=== PATIENT | male | born 1965 | race African-American/Black ===

== ENCOUNTER 2016-05-30 04:37 | Emergency (ER) | payer SELFPAY ==
[2016-05-30] MEDS ORDERED: methylPREDNISolone Sod Succ/PF 125 MG/2 ML VIAL ONE (05:04)
[2016-05-30] MEDS ORDERED: Dexamethasone 10 MG/ML VIAL ONE (05:58)
[2016-05-30] MEDS ORDERED: cloNIDine HCl 0.1 MG TAB ONE (06:01)
[2016-05-30 06:03] LABS: #Basophils 0.1 thou/uL (0.0-0.2); #Eosinphils 0.2 thou/uL (0.0-0.7); #Lymphocytes 1.4 thou/uL (1.20-3.40); #Monocytes 0.8 thou/uL (0.11-0.59); #Neutrophils 4.6 thou/uL (1.40-6.50); %Basophils 1.2 % (0.0-1.0); %Eosinophils 2.3 % (0.0-10.0); %Lymphocytes 19.1 % (21.0-51.0); %Monocytes 11.6 % (0.0-10.0); %Neutrophils 65.8 % (42.0-75.0); Hemoglobin 13.3 g/dL (14.0-18.0); Mean Corpuscular HGB CONC 33.2 g/dL (32.0-36.0); Mean Corpuscular Hemoglobin 30.5 pg (27.0-31.0); Mean Corpuscular Volume 91.8 fl (80.0-94.0); Mean Platelet Volume 10.1 fL (7.4-10.4); Platelet Count 155 thou/uL (130-400); RBC Distribution Width 13.6 % (11.5-14.5); Red Blood Cell (RBC) Count 4.37 mill/uL (4.70-6.10)
[2016-05-30] MEDS ORDERED: AMOXicillin 250 MG CAP ONE (06:03)
[2016-05-30 06:08] LABS: ALT (SGPT) 32 U/L (0-55); AST (SGOT) 44 U/L (5-34); Albumin 3.6 g/dL (3.5-5.0); Alkaline Phosphatase 86 U/L (40-150); Anion Gap 17 mmol/L (10-20); BUN (Urea Nitrogen) 19 mg/dL (8.9-20.6); Bilirubin, Total 0.6 mg/dL (0.2-1.2); Calc. Creatinine Clearance 0 mL/min (70-130); Calcium 9.6 mg/dL (7.8-10.44); Carbon Dioxide 28 mmol/L (22-29); Chloride 102 mmol/L (98-107); Estimated GFR-MDRD 54; Globulin 3.1 g/dL (2.4-3.5); Glucose 206 mg/dL (70-105); Magnesium 2.2 mg/dL (1.6-2.6); Protein, Total 6.7 g/dL (6.0-8.3); Sodium 143 mmol/L (136-145)
[2016-05-30 06:14] LABS: Troponin I 0.097 ng/mL (< 0.028)
--- NOTE | 2016-05-30 06:48 | ERRECORD ---
[facility] EMERGENCY RECORD HPI ASTHMA (05:01 BGOE) CHIEF COMPLAINT: Patient presents for evaluation of shortness of breath. HISTORIAN: History provided by patient, patient reports asthma issues over past week. long h/o asthma, htn, dm2 but out of all meds--has not taken for 2 years and has not seen pcp in 3 years. does not have rescue inhaler. worsened this am so called ems. initial neb gave him some relief. denies any associated complaints. LOCATION: Symptoms are generalized. QUALITY: Symptoms described as tightness, Symptoms described as wheezing. SEVERITY: Maximum severity of symptoms moderate, Currently symptoms are mild. TIME COURSE: Gradual onset of symptoms. ASTHMA ADMITS: Onset occurred as a child, There were no admits within the last year, There were no admits in the last five years, Patient has not been admitted to the intensive care unit. PRECIPITATING FACTORS: Precipitating factors include: unknown factors. ASSOCIATED WITH: No associated chills, No associated fever, No associated increased inhaler use, No associated upper respiratory infection, No associated vomiting. EXACERBATED BY: Patient's condition exacerbated by nothing. RELIEVED BY: Patient's condition relieved by nothing because patient has not tried anything for relief. ROS (05:05 BGOE) CONSTITUTIONAL: Negative constitutional review of systems. EYES: Negative eye review of systems. RESPIRATORY: Historian reports shortness of breath. NOTES: All systems reviewed, negative except as described above. PAST MEDICAL HISTORY MEDICAL HISTORY: Past medical history includes history of diabetes, no meds for 2 years, Past medical history includes history of hypertension, no meds for 2 yrs, Past medical history includes pulmonary disease, asthma, no meds for 2 yrs. (04:49 MHEB) PSYCHIATRIC HISTORY: No previous psychiatric history. (04:49 MHEB) SOCIAL HISTORY: Patient denies alcohol use, Patient denies drug use, Patient has no smoking history. (04:49 MHEB) NOTES: Nursing records reviewed, Agree with nursing records, Medication list reviewed. (05:07 BGOE) KNOWN ALLERGIES nkda CURRENT MEDICATIONS No recorded medications VITAL SIGNS (04:41 MHEB) &a-1R&a+25V*p+0X*[id number]*c202B*c15G*c2P*p-0X&a-25V&a+1R Name: Logan Garcia : 1965 M50 MedRec: [id number] AcctNum: [id number] Prepared: Fiona May 30, 2016 07:13 by Interface Page 1 of 3 pMD [facility] EMERGENCY RECORD VITAL SIGNS: BP: 175//115, Pulse: 92, Resp: 22, Temp: 97.7 (Tympanic), Pain: 5, O2 sat: 92 on Room Air, Time: 05/30/2016 04:41. PHYSICAL EXAM (05:06 BGOE) CONSTITUTIONAL: Patient afebrile, Pulse normal, Blood pressure, hypertensive, Respiratory rate, increased, Abnormal Pulse Oximetry, Patient appears non toxic, Patient appears pain free, Patient alert and oriented to person, place and time, obese. HEAD: Head exam included findings of head atraumatic, normocephalic. EYES: Eye exam included findings of eyelids normal to inspection, Pupils equally round and reactive to light, Extraocular muscles intact. ENT: ENT exam normal. NECK: Neck exam included findings of normal range of motion, Trachea midline. RESPIRATORY CHEST: Respiratory exam included findings of no respiratory distress, Wheezing present, scattered. CARDIOVASCULAR: Cardiovascular exam included findings of heart rate regular rate and rhythm, Heart sounds normal. ABDOMEN MALE: Abdominal exam included findings of abdomen nontender, Bowel sounds normal. BACK: Back exam normal. UPPER EXTREMITY: Upper extremity exam included findings of inspection normal, Range of motion normal. LOWER EXTREMITY: Left lower leg exam normal, Right lower leg exam normal. NEURO: Neuro exam findings include patient oriented to person, place and time, Speech normal, Gait normal. SKIN: Skin exam included findings of skin warm, dry, and normal in color. LYMPHATIC: Lymphatic exam included findings of cervical nodes normal. PSYCHIATRIC: Psychiatric exam normal. MEDICATION ADMINISTRATION SUMMARY Drug Name: aspirin oral, Dose Ordered: 325 mg, Route: Oral, Status: Given, Time: 06:39 05/30/2016, Drug Name: Decadron injection, Dose Ordered: 10 mg, Route: IV Push, Status: Given, Time: 06:10 05/30/2016, Drug Name: amoxicillin, Dose Ordered: 500 mg, Route: Oral, Status: Given, Time: 06:10 05/30/2016, Drug Name: Catapres, Dose Ordered: 0.2 mg, Route: Oral, Status: Given, Time: 06:09 05/30/2016, Drug Name: DuoNeb, Dose Ordered: 3 mL, Route: Nebulize, Status: Given, Time: 06:09 05/30/2016, Drug Name: Solu-MEDROL (PF) intravenous, Dose Ordered: 125 mg, Route: &a-1R&a+25V*p+0X*[id number]*c202B*c15G*c2P*p-0X&a-25V&a+1R Name: Logan Garcia : 1965 M50 MedRec: [id number] AcctNum: [id number] Prepared: Fiona May 30, 2016 07:13 by Interface Page 2 of 3 pMD [facility] EMERGENCY RECORD IV Piggy Back, Status: Given, Time: 05:14 05/30/2016, Drug Name: DuoNeb, Dose Ordered: 3 mL, Route: Nebulize, Status: Given, Time: 05:13 05/30/2016, Detailed record available in Medication Service section. DOCTOR NOTES RE-EVALUATION: The patient's condition has improved, patient sats now 100% on room air. completing 3rd neb treatment. feeling better. labs pending. case and care transferred to Dr. Harvey. (05:53 BGOE) Routine re-evaluation, after administration of bronchodilator nebulizer treatments, The patient's condition has improved, patient improved after neb in ed. decreased wheezing. (second overall including neb from ems). BP improved to 148/104.Sats improved with 2 L oxygen. (05:09 BGOE) TEXT: troponin up to nearly 0.1. pt now says he had some anterior chest pain last night but it was worse this morning. no prior chest pains. htn, dm2, both w/o treat. both parents had heart problems and mom had an "early heart attack." no pain now. (06:28 LLDO) SIGN OUT: Patient signed out to, Dr. Harvey. (05:53 BGOE) PATIENT PLAN: The patient requires a transfer and will be transferred. (06:28 LLDO) PROBLEM LIST No recorded problems DIAGNOSIS FINAL: PRIMARY: UNSTABLE ANGINA, ADDITIONAL: Hypertension, obesity, Type 2 Diabetes mellitus (NIDDM) - uncontrolled. (06:39 LLDO) PRIMARY: UNSTABLE ANGINA, ADDITIONAL: Asthma, Hypertension, obesity, Type 2 Diabetes mellitus (NIDDM) - uncontrolled. (06:48 LLDO) PRESCRIPTION No recorded prescriptions DISPOSITION PATIENT: Disposition Type: Discharge, Disposition: *Discharge Home. (06:39 LLDO) Disposition Type: Transfer, Disposition: Transfer to [facility]. (06:41 LLDO) Patient left the department. (07:07 AWAT) Thompson: AWAT=MIKHAIL Jin, Josh BGOE=MD Beltran, Davis LLDO=MD Candice, Tahir MHEB=MIKHAIL Toure, Lesia &a-1R&a+25V*p+0X*[id number]*c202B*c15G*c2P*p-0X&a-25V&a+1R Name: Logan Garcia : 1965 M50 MedRec: [id number] AcctNum: [id number] Prepared: Fiona May 30, 2016 07:13 by Interface Page 3 of 3 pMD MTDD
--- NOTE | 2016-05-30 06:51 | PICIS ---
[facility] EMERGENCY RECORD COMMUNICATIONS (06:34 AWAT) COMMUNICATIONS: Notes: DR PERDOMO AT [facility] ER ACCEPTS PT FOR TRANSFER AT THIS TIME. TRIAGE (04:44 MHEB) TRIAGE NOTES: sob. (04:44 MHEB) PATIENT: NAME: Logan Garcia, AGE: 50, GENDER: male, : Sat 1965, TIME OF GREET: Sun May 30, 2016 04:37, PREFERRED LANGUAGE: Moldovan, ECODE BILLING MAP: [facility] ER, SSN: [id number], Zip Code: [address], KG WEIGHT: 131.54, , , PERSON ID: [id number], PCP: none. (04:44 MHEB) PHONE: cell. (05:57) COMPLAINT: DIFFICULTY BREATHING. (04:44 MHEB) ADMISSION: URGENCY: 3 Urgent, ADMISSION SOURCE: Home, TRANSPORT: [facility], BED: TRIAGE. (04:44 MHEB) ASSESSMENT: Assessment: pt called 911 d/t difficulty breathing. (04:49 MHEB) IMMUNIZATIONS: Flu vaccine not up to date, Tetanus not up to date. (04:49 MHEB) SIRS SCORING: Heart Rate 55-109 (0), Temp range 96.8-101.1 (0), respiratory rate 12-24 (0), Mental Status altered: no (0). (04:49 MHEB) TRIAGE SCREENING: Patient denies suicidal ideation, Patient denies presence of domestic violence. (04:49 MHEB) PROVIDERS: TRIAGE NURSE: Lesia Toure RN. (04:44 MHEB) VITAL SIGNS: BP 175//115, Pulse 92, Resp 22, Temp 97.7, (Tympanic), Pain 5, O2 Sat 92, on Room Air, Time 05/30/2016 04:41. (04:41 MHEB) KNOWN ALLERGIES nkda CURRENT MEDICATIONS No recorded medications VITAL SIGNS (04:41 MHEB) VITAL SIGNS: BP: 175//115, Pulse: 92, Resp: 22, Temp: 97.7 (Tympanic), Pain: 5, O2 sat: 92 on Room Air, Time: 05/30/2016 04:41. NURSING ASSESSMENT: RESPIRATORY /CHEST (04:49 MHEB) CONSTITUTIONAL: Patient arrives, via stretcher, via [facility], Gait steady, History obtained from patient, Patient appears comfortable, Patient cooperative, Patient alert, Oriented to person, place and time, Skin warm, Skin dry, Skin normal in color, Mucous membranes pink, Mucous membranes moist, Patient is well-groomed, Patient complains of sob, pt had elevated BP when ems arrived, treated with 1 sl nitro spray and 1inch nitro paste. also had 1 neb treatement in route. RESPIRATORY/CHEST: Lungs auscultated, Breath sounds with &a-1R&a+25V*p+0X*t4984G*c202B*c15G*c2P*p-0X&a-25V&a+1R Name: Logan Garcia : 1965 M50 MedRec: [id number] AcctNum: [id number] Prepared: Fiona May 30, 2016 07:19 by Interface Page 1 of 10 pMD [facility] EMERGENCY RECORD wheezing, diffusely, Respiratory assessment findings include respiratory effort easy, Respirations regular, Conversing normally, Notes: ems states that pt was only able to speak in 3 word sentences on scene. ENT: Nasal mucosa. SAFETY: Side rails up, Cart/Stretcher in lowest position, Call light within reach, Hospital ID band on. NURSING PROCEDURE: [employer] INSTRUCTOR (04:50 MHEB) PATIENT IDENTIFIER: Patient's identity verified by patient stating name, Patient's identity verified by patient stating date. [employer] INSTRUCTOR: Cardiac monitoring indicated for sob htn, Patient placed on athletic monitor, Patient placed on non-invasive blood pressure monitor, Patient placed on continuous pulse oximetry. FOLLOW-UP: After procedure, alarms set and on, After procedure, patient tolerating monitoring. NURSING PROCEDURE: EKG CHART (06:34 MHEB) PATIENT IDENTIFIER: Patient actively involved in identification process, Patient's identity verified by patient stating name, Patient's identity verified by patient stating date. EKG: EKG indicated for sob, 12 lead EKG performed on the left chest. FOLLOW-UP: After procedure, EKG for interpretation given to Dr. harvey. SAFETY: Side rails up, Cart/Stretcher in lowest position, Family at bedside, Call light within reach, Hospital ID band on. NURSING PROCEDURE: OXYGEN THERAPY (04:50 MHEB) PATIENT IDENTIFIER: Patient actively involved in identification process, Patient's identity verified by patient stating name, Patient's identity verified by patient stating date. OXYGEN THERAPY: Oxygen therapy indicated for wheezing, Oxygen therapy indicated for desaturation, Oxygen therapy indicated for respiratory distress, Oxygen saturation 92%, 2L oxygen given, via nasal cannula applied, via nasal cannula. NURSING PROCEDURE: TRANSFER (07:03 MHEB) TRANSFER: Reason for transfer need for specialized care, Diagnosis: chest pain, Accepting institution: [facility], Accepting physician: jw, Referring physician: candice, Report called to receiving facility, [facility], Copy of patient record prepared for receiving facility. BELONGINGS: Belongings and valuables with patient at time of discharge include:, Belongings remain with patient. ORDER DETAILS Order Name: B type Natriuretic Peptide, Status: Active, Time: 04:58 &a-1R&a+25V*p+0X*f0395R*c202B*c15G*c2P*p-0X&a-25V&a+1R Name: JoseLogan : 1965 M50 MedRec: [id number] AcctNum: [id number] Prepared: Fiona May 30, 2016 07:19 by Interface Page 2 of 10 D [facility] EMERGENCY RECORD 05/30/2016, User: BGOE, - Ordered for: MD Gong Brian, - Entered by: MD Gong Brian - Fiona May 30, 2016 04:58, - Quantity: 1, Order Name: Cardiac Profile w/CKMB & Troponin - I, Status: Active, Time: 04:58 05/30/2016, User: OE, - Ordered for: MD Gong Brian, - Entered by: MD Gong Brian - Fiona May 30, 2016 04:58, - Quantity: 1, Order Name: CBC with Differential, Status: Active, Time: 04:58 05/30/2016, User: NGOC, - Ordered for: MD Gong Brian, - Entered by: MD Gong Brian - Fiona May 30, 2016 04:58, - Quantity: 1, Order Name: Comprehensive Metabolic Panel, Status: Active, Time: 04:58 05/30/2016, User: NGOC, - Ordered for: MD Gong Brian, - Entered by: MD Gong Brian - Sun May 30, 2016 04:58, - Quantity: 1, Order Name: Magnesium, Status: Active, Time: 04:58 05/30/2016, User: NGOC, - Ordered for: MD Gong Brian, - Entered by: MD Gong Brian - Sun May 30, 2016 04:58, - Quantity: 1, Order Name: XR Chest 1 View Portable, Status: Active, Time: 04:55 05/30/2016, User: NGOC, - Ordered for: MD Gong Brian, - Entered by: MD Gong Brian - Sun May 30, 2016 04:55, - Quantity: 1. MEDICATION ADMINISTRATION SUMMARY Drug Name: aspirin oral, Dose Ordered: 325 mg, Route: Oral, Status: Given, Time: 06:39 05/30/2016, Drug Name: Decadron injection, Dose Ordered: 10 mg, Route: IV Push, Status: Given, Time: 06:10 05/30/2016, Drug Name: amoxicillin, Dose Ordered: 500 mg, Route: Oral, Status: Given, Time: 06:10 05/30/2016, Drug Name: Catapres, Dose Ordered: 0.2 mg, Route: Oral, Status: Given, Time: 06:09 05/30/2016, Drug Name: DuoNeb, Dose Ordered: 3 mL, Route: Nebulize, Status: Given, Time: 06:09 05/30/2016, Drug Name: Solu-MEDROL (PF) intravenous, Dose Ordered: 125 mg, Route: IV Piggy Back, Status: Given, Time: 05:14 05/30/2016, Drug Name: DuoNeb, Dose Ordered: 3 mL, Route: Nebulize, Status: Given, Time: 05:13 05/30/2016, Detailed record available in Medication Service section. MEDICATION SERVICE amoxicillin: Order: amoxicillin (amoxicillin trihydrate) - &a-1R&a+25V*p+0X*g6166G*c202B*c15G*c2P*p-0X&a-25V&a+1R Name: Logan Garcia : 1965 M50 MedRec: [id number] AcctNum: [id number] Prepared: TueMay 30, 2016 07:19 by Interface Page 3 of 10 pMD [facility] EMERGENCY RECORD Dose: 500 mg : Oral Schedule: Now Ordered by: Tahir Harvey MD Entered by: MD Fiona Nicole May 30, 2016 05:53 , Acknowledged by: MIKHAIL Song May 30, 2016 06:09 Documented as given by: MIKHAIL Song May 30, 2016 06:10 Patient, Medication, Dose, Route and Time verified prior to administration. Amount given: 500mg, Site: Medication administered P.O., Correct patient, time, route, dose and medication confirmed prior to administration, Patient advised of actions and side-effects prior to administration, Allergies confirmed and medications reviewed prior to administration, Patient in position of comfort, Side rails up, Cart in lowest position, Family at bedside. aspirin oral: Order: aspirin oral (aspirin) - Dose: 325 mg : Oral Schedule: Now Ordered by: Tahir Harvey MD Entered by: MD Fiona Nicole May 30, 2016 06:26 , Acknowledged by: MIKHAIL Song May 30, 2016 06:39 Documented as given by: MIKHAIL Song May 30, 2016 06:39 Patient, Medication, Dose, Route and Time verified prior to administration. Amount given: 325mg, Site: Medication administered P.O., Correct patient, time, route, dose and medication confirmed prior to administration, Patient advised of actions and side-effects prior to administration, Allergies confirmed and medications reviewed prior to administration, Patient in position of comfort, Side rails up, Cart in lowest position, Family at bedside. Catapres: Order: Catapres (clonidine HCl) - Dose: 0.2 mg : Oral Schedule: Now Ordered by: Tahir Harvey MD Entered by: MD Fiona Nicole May 30, 2016 05:56 , Acknowledged by: MIKHAIL Song May 30, 2016 06:09 Documented as given by: MIKHAIL Song May 30, 2016 06:09 Patient, Medication, Dose, Route and Time verified prior to administration. Amount given: 0.2mg, Site: Medication administered P.O., Correct patient, time, route, dose and medication confirmed prior to administration, Patient advised of actions and side-effects prior to administration, Allergies confirmed and medications reviewed prior to administration, Patient in position of comfort, Side rails up, Cart in lowest position, Family at bedside. Decadron injection: Order: Decadron injection (dexamethasone sod phosphate) - Dose: 10 mg : IV Push Schedule: Now Ordered by: Tahir Harvey MD Entered by: MD Fiona Nicole May 30, 2016 05:53 , Acknowledged by: MIKHAIL Song May 30, 2016 05:59 &a-1R&a+25V*p+0X*j9634E*c202B*c15G*c2P*p-0X&a-25V&a+1R Name: Logan Gracia : 1965 M50 MedRec: [id number] AcctNum: [id number] Prepared: Fiona May 30, 2016 07:19 by Interface Page 4 of 10 pMD [facility] EMERGENCY RECORD Documented as given by: MIKHAIL Song May 30, 2016 06:10 Patient, Medication, Dose, Route and Time verified prior to administration. Amount given: 10mg, IV SITE #1 IVP, subsequent different medication, Slowly, Patient in position of comfort, Side rails up, Cart in lowest position, Family at bedside. DuoNeb: Order: DuoNeb (ipratropium bromide/albuterol sulfate) - Dose: 3 mL : Nebulize Schedule: Now Ordered by: Davis Gong MD Entered by: MD Fiona Li May 30, 2016 05:00 , Acknowledged by: MIKHAIL Song May 30, 2016 05:13 Documented as given by: MIKHAIL Song May 30, 2016 05:13 Patient, Medication, Dose, Route and Time verified prior to administration. Amount given: 3ml, Site: Medication administered via Hand-held nebulizer, With oxygen, Correct patient, time, route, dose and medication confirmed prior to administration, Patient advised of actions and side-effects prior to administration, Allergies confirmed and medications reviewed prior to administration, Patient in position of comfort, Side rails up, Cart in lowest position, Family at bedside. DuoNeb: Order: DuoNeb (ipratropium bromide/albuterol sulfate) - Dose: 3 mL : Nebulize Schedule: Now Ordered by: Tahir Harvey MD Entered by: MD Fiona Nicole May 30, 2016 05:57 , Acknowledged by: MIKHAIL Song May 30, 2016 05:59 Documented as given by: MIKHAIL Song May 30, 2016 06:09 Patient, Medication, Dose, Route and Time verified prior to administration. Amount given: 3ml, With oxygen. Solu-MEDROL (PF) intravenous: Order: Solu-MEDROL (PF) intravenous (methylprednisolone sod succ/preservative free) - Dose: 125 mg : IV Piggy Back Schedule: Now Ordered by: Davis Gong MD Entered by: MD Fiona Li May 30, 2016 05:00 , Acknowledged by: MIKHAIL Song May 30, 2016 05:13 Documented as given by: MIKHAIL Song May 30, 2016 05:14 Patient, Medication, Dose, Route and Time verified prior to administration. Amount given: 125mg, IV SITE #1 IVP, initial medication, Slowly, Catheter placement confirmed via flush prior to administration, IV site without signs or symptoms of infiltration during medication administration, No swelling during administration, No drainage during administration, IV flushed after administration, Correct patient, time, route, dose and medication confirmed prior to administration, Patient advised of actions and side-effects prior to administration, Allergies confirmed and medications reviewed prior to administration, &a-1R&a+25V*p+0X*m6500L*c202B*c15G*c2P*p-0X&a-25V&a+1R Name: Logan Garcia : 1965 M50 MedRec: [id number] AcctNum: [id number] Prepared: Fiona May 30, 2016 07:19 by Interface Page 5 of 10 pMD [facility] EMERGENCY RECORD Patient in position of comfort, Side rails up, Cart in lowest position, Family at bedside. HPI ASTHMA (05:01 BGOE) CHIEF COMPLAINT: Patient presents for evaluation of shortness of breath. HISTORIAN: History provided by patient, patient reports asthma issues over past week. long h/o asthma, htn, dm2 but out of all meds--has not taken for 2 years and has not seen pcp in 3 years. does not have rescue inhaler. worsened this am so called ems. initial neb gave him some relief. denies any associated complaints. LOCATION: Symptoms are generalized. QUALITY: Symptoms described as tightness, Symptoms described as wheezing. SEVERITY: Maximum severity of symptoms moderate, Currently symptoms are mild. TIME COURSE: Gradual onset of symptoms. ASTHMA ADMITS: Onset occurred as a child, There were no admits within the last year, There were no admits in the last five years, Patient has not been admitted to the intensive care unit. PRECIPITATING FACTORS: Precipitating factors include: unknown factors. ASSOCIATED WITH: No associated chills, No associated fever, No associated increased inhaler use, No associated upper respiratory infection, No associated vomiting. EXACERBATED BY: Patient's condition exacerbated by nothing. RELIEVED BY: Patient's condition relieved by nothing because patient has not tried anything for relief. ROS (05:05 BGOE) CONSTITUTIONAL: Negative constitutional review of systems. EYES: Negative eye review of systems. RESPIRATORY: Historian reports shortness of breath. NOTES: All systems reviewed, negative except as described above. PAST MEDICAL HISTORY MEDICAL HISTORY: Past medical history includes history of diabetes, no meds for 2 years, Past medical history includes history of hypertension, no meds for 2 yrs, Past medical history includes pulmonary disease, asthma, no meds for 2 yrs. (04:49 MHEB) PSYCHIATRIC HISTORY: No previous psychiatric history. (04:49 MHEB) SOCIAL HISTORY: Patient denies alcohol use, Patient denies drug use, Patient has no smoking history. (04:49 MHEB) NOTES: Nursing records reviewed, Agree with nursing records, Medication list reviewed. (05:07 BGOE) PHYSICAL EXAM (05:06 BGOE) CONSTITUTIONAL: Patient afebrile, Pulse normal, Blood pressure, hypertensive, Respiratory rate, increased, Abnormal Pulse Oximetry, Patient &a-1R&a+25V*p+0X*w0018W*c202B*c15G*c2P*p-0X&a-25V&a+1R Name: Logan Garcia : 1965 M50 MedRec: [id number] AcctNum: [id number] Prepared: Fiona May 30, 2016 07:19 by Interface Page 6 of 10 pMD [facility] EMERGENCY RECORD appears non toxic, Patient appears pain free, Patient alert and oriented to person, place and time, obese. HEAD: Head exam included findings of head atraumatic, normocephalic. EYES: Eye exam included findings of eyelids normal to inspection, Pupils equally round and reactive to light, Extraocular muscles intact. ENT: ENT exam normal. NECK: Neck exam included findings of normal range of motion, Trachea midline. RESPIRATORY CHEST: Respiratory exam included findings of no respiratory distress, Wheezing present, scattered. CARDIOVASCULAR: Cardiovascular exam included findings of heart rate regular rate and rhythm, Heart sounds normal. ABDOMEN MALE: Abdominal exam included findings of abdomen nontender, Bowel sounds normal. BACK: Back exam normal. UPPER EXTREMITY: Upper extremity exam included findings of inspection normal, Range of motion normal. LOWER EXTREMITY: Left lower leg exam normal, Right lower leg exam normal. NEURO: Neuro exam findings include patient oriented to person, place and time, Speech normal, Gait normal. SKIN: Skin exam included findings of skin warm, dry, and normal in color. LYMPHATIC: Lymphatic exam included findings of cervical nodes normal. PSYCHIATRIC: Psychiatric exam normal. EVENTS TRANSFER: Triage to Emergency Triage. ([place] May 30, 2016 04:44 MHEB) Emergency Triage to Main ED -01. (04:44 MHEB) Removed from Emergency Main ED -01. (07:07 AWAT) O2SAT INTERPRETATION (05:07 BGOE) O2SAT: Continuous pulse oximetry, on 2L, Oxygen saturation interpretation: Low normal. DOCTOR NOTES RE-EVALUATION: The patient's condition has improved, patient sats now 100% on room air. completing 3rd neb treatment. feeling better. labs pending. case and care transferred to Dr. Harvey. (05:53 BGOE) Routine re-evaluation, after administration of bronchodilator nebulizer treatments, The patient's condition has improved, patient improved after neb in ed. decreased wheezing. (second overall including neb from ems). BP improved to 148/104.Sats improved with 2 L oxygen. (05:09 BGOE) &a-1R&a+25V*p+0X*m7162C*c202B*c15G*c2P*p-0X&a-25V&a+1R Name: Logan Garcia : 1965 M50 MedRec: [id number] AcctNum: [id number] Prepared: Fiona May 30, 2016 07:19 by Interface Page 7 of 10 pMD [facility] EMERGENCY RECORD TEXT: troponin up to nearly 0.1. pt now says he had some anterior chest pain last night but it was worse this morning. no prior chest pains. htn, dm2, both w/o treat. both parents had heart problems and mom had an "early heart attack." no pain now. (06:28 LLDO) SIGN OUT: Patient signed out to, Dr. Harvey. (05:53 BGOE) PATIENT PLAN: The patient requires a transfer and will be transferred. (06:28 LLDO) PROBLEM LIST No recorded problems DIAGNOSIS FINAL: PRIMARY: UNSTABLE ANGINA, ADDITIONAL: Hypertension, obesity, Type 2 Diabetes mellitus (NIDDM) - uncontrolled. (06:39 LLDO) PRIMARY: UNSTABLE ANGINA, ADDITIONAL: Asthma, Hypertension, obesity, Type 2 Diabetes mellitus (NIDDM) - uncontrolled. (06:48 LLDO) DISPOSITION PATIENT: Disposition Type: Discharge, Disposition: *Discharge Home. (06:39 LLDO) Disposition Type: Transfer, Disposition: Transfer to [facility]. (06:41 LLDO) Patient left the department. (07:07 AWAT) PRESCRIPTION No recorded prescriptions IMAGING *MEMORANDUM OF TRANSFER: Image captured from scanner. (06:39 AWAT) EMS TRANSPORT ORDERS: Image captured from scanner. (06:39 AWAT) *EKG: Image captured from scanner. (06:39 AWAT) CONSENTS: Image captured from scanner. (06:42 AWAT) VITAL SIGNS: Image captured from scanner. (06:53 AWAT) *SUPPLY CHARGE SHEET: Image captured from scanner. (06:58 JPER) SBARU: Image captured from scanner. (07:02 AWAT) TRANSFER WORKSHEET: Image captured from scanner. (07:03 AWAT) Page 2 added. Image captured from scanner. (07:03 AWAT) ADMIN DIGITAL SIGNATURE: MD Harvey Lloyd. (06:39 LLDO) MD Harvey Lloyd. (06:41 LLDO) MD Harvey Lloyd. (06:48 LLDO) RESULTS (06:51 AWAT) LABORATORY: Cardiac Profile w/CKMB & TropI Collection DT: Fiona May 30, 2016 05:38, CKMB 5.0 ng/mL, Range (0-6.6), &a-1R&a+25V*p+0X*y8996J*c202B*c15G*c2P*p-0X&a-25V&a+1R Name: Logan Garcia : 1965 M50 MedRec: [id number] AcctNum: [id number] Prepared: TueMay 30, 2016 07:19 by Interface Page 8 of 10 pMD [facility] EMERGENCY RECORD *Troponin I 0.097 - H ng/mL, Range (< 0.028), Reference Range , 0.00 - 0.028 ng/mL Negative 0.029 - 0.29 ng/mL , Indeterminate Greater or Equal to 0.3 ng/mL Strongly suggests SC , . B type Natriuretic Peptide Collection DT: Whipple May 30, 2016 05:38, *B type Natriuretic Peptide 176.7 - H pg/mL, Range (0-100). Magnesium Collection DT: [place]ipple May 30, 2016 05:38, Magnesium 2.2 mg/dL, Range (1.6-2.6). Comprehensive Metabolic Panel Collection DT: [place] May 30, 2016 05:38, Sodium 143 mmol/L, Range (136-145), Potassium 4.0 mmol/L, Range (3.5-5.1), Chloride 102 mmol/L, Range (98-107), Carbon Dioxide 28 mmol/L, Range (22-29), Anion Gap 17 mmol/L, Range (10-20), BUN (Urea Nitrogen) 19 mg/dL, Range (8.9-20.6), *Creatinine 1.64 - H mg/dL, Range (0.7-1.3), Estimated GFR-MDRD 54 , Reference Range for Estimated GFR: Greater than 90, mL/min/1.73 m2 NOTE: The MDRD equation has not been validated for use, with the elderly (over 70 years of age), women, patients with, serious comorbid condition or persons with extremes of body size, muscle, mass, or nutritional status. , *Glucose 206 - H mg/dL, Range (70-105), Calcium 9.6 mg/dL, Range (7.8-10.44), Bilirubin, Total 0.6 mg/dL, Range (0.2-1.2), Protein, Total 6.7 g/dL, Range (6.0-8.3), NOTE: Plasma values are generally 0.3 to 0.5 g/dL higher than serum values, due to the presence of fibrinogen. , Albumin 3.6 g/dL, Range (3.5-5.0), Globulin 3.1 g/dL, Range (2.4-3.5), Alb/Glob Ratio 1.2 g/dL, Range (1.2-2.2), Alkaline Phosphatase 86 U/L, Range (40-150), *AST (SGOT) 44 - H U/L, Range (5-34), ALT (SGPT) 32 U/L, Range (0-55). CBC with Differential Collection DT: Fiona May 30, 2016 05:38, White Blood Cell (WBC) Count 7.0 thou/uL, Range (4.8-10.8), *Red Blood Cell (RBC) Count 4.37 - L mill/uL, Range (4.70-6.10), *Hemoglobin 13.3 - L g/dL, Range (14.0-18.0), *Hematocrit 40.1 - L %, Range (42.0-52.0), Mean Corpuscular Volume 91.8 fl, Range (80.0-94.0), Mean Corpuscular Hemoglobin 30.5 pg, Range (27.0-31.0), Mean Corpuscular HGB CONC 33.2 g/dL, Range (32.0-36.0), RBC Distribution Width 13.6 %, Range (11.5-14.5), Platelet Count 155 thou/uL, Range (130-400), &a-1R&a+25V*p+0X*v5901U*c202B*c15G*c2P*p-0X&a-25V&a+1R Name: Logan Garcia : 1965 10 MedRec: [id number] AcctNum: [id number] Prepared: Fiona May 30, 2016 07:19 by Interface Page 9 of 10 pMD [facility] EMERGENCY RECORD Mean Platelet Volume 10.1 fL, Range (7.4-10.4), %Neutrophils 65.8 %, Range (42.0-75.0), *%Lymphocytes 19.1 - L %, Range (21.0-51.0), *%Monocytes 11.6 - H %, Range (0.0-10.0), %Eosinophils 2.3 %, Range (0.0-10.0), *%Basophils 1.2 - H %, Range (0.0-1.0), #Neutrophils 4.6 thou/uL, Range (1.40-6.50), #Lymphocytes 1.4 thou/uL, Range (1.20-3.40), *#Monocytes 0.8 - H thou/uL, Range (0.11-0.59), #Eosinphils 0.2 thou/uL, Range (0.0-0.7), #Basophils 0.1 thou/uL, Range (0.0-0.2). Thompson: AWAT=MIKHAIL Jin, Josh GROSSMAN=MD Beltran, Davis POLO=MIKHAIL Obrien, Jacquie WINTER=MD Candice, Tahir MHEB=MIKHAIL Toure, Lesia &a-1R&a+25V*p+0X*d7686R*c202B*c15G*c2P*p-0X&a-25V&a+1R Name: Logan Garcia : 1965 M50 MedRec: [id number] AcctNum: [id number] Prepared: Fiona May 30, 2016 07:19 by Interface Page 10 of 10 pMD [facility]
--- NOTE | 2016-05-30 08:42 | RAD ---
EXAM: ONE VIEW CHEST: HISTORY: Dyspnea. FINDINGS: Normal cardiac silhouette. The pulmonary vessels are slightly prominent. No masses or consolidatio n. No pneumothorax or osseous abnormalities. IMPRESSION: Pulmonary vascular prominence. POS: [place]
== END 2016-05-30 06:37 | disposition short-term general hospital (02) ==
LOC: MADERS 04:37
DX: I20.0 Unstable angina (principal); I10 Essential (primary) hypertension; E66.9 Obesity, unspecified; E11.9 Type 2 diabetes mellitus without complications; J45.909 Unspecified asthma, uncomplicated
CPT/HCPCS: 36415; 71010; 80053; 82553; 83735; 83880; 84484; 85025; 96374; 96375; J0290; J1100; J2930; J7620

== ENCOUNTER 2020-12-18 15:37 | Outpatient (CLI) | payer OTHER ==
[2020-12-18 16:08] LABS: Anion Gap 15 mmol/L (10-20); BUN (Urea Nitrogen) 38 mg/dL (8.4-25.7); Calc. Creatinine Clearance 0 mL/min (70-130); Carbon Dioxide 25 mmol/L (22-29); Chloride 107 mmol/L (98-107); Glucose 142 mg/dL (70-105); Potassium 4.4 mmol/L (3.5-5.1); Sodium 143 mmol/L (136-145)
== END 2020-12-18 15:38 | disposition home or self-care (01) ==
LOC: MADLAB 15:37
DX: I50.43 Acute on chronic combined systolic (congestive) and diastolic (congestive) heart failure (principal)
CPT/HCPCS: 80048

== ENCOUNTER 2021-01-11 21:38 | Emergency (ER) | payer OTHER ==
[2021-01-11 22:29] LABS: ALT (SGPT) 59 U/L (8-55); AST (SGOT) 30 U/L (5-34); Albumin 3.4 g/dL (3.5-5.0); Alkaline Phosphatase 141 U/L (40-110); Anion Gap 16 mmol/L (10-20); BUN (Urea Nitrogen) 37 mg/dL (8.4-25.7); Calc. Creatinine Clearance 0 mL/min (70-130); Calcium 8.9 mg/dL (7.8-10.44); Carbon Dioxide 26 mmol/L (22-29); Chloride 102 mmol/L (98-107); Globulin 3.3 g/dL (2.4-3.5); Glucose 201 mg/dL (70-105); Magnesium 2.4 mg/dL (1.6-2.6); Potassium 4.6 mmol/L (3.5-5.1); Protein, Total 6.7 g/dL (6.0-8.3); Sodium 139 mmol/L (136-145)
[2021-01-11 22:49] LABS: #Eosinphils 0.2 thou/uL (0.0-0.7); #Lymphocytes 0.6 thou/uL (1.20-3.40); #Monocytes 0.8 thou/uL (0.11-0.59); #Neutrophils 5.4 thou/uL (1.40-6.50); %Basophils 0.5 % (0.0-1.0); %Eosinophils 2.3 % (0.0-10.0); %Lymphocytes 8.8 % (21.0-51.0); %Monocytes 10.8 % (0.0-10.0); %Neutrophils 77.7 % (42.0-75.0); Bite Cells MODERATE= 6-15 cells (100X) (0-1/hpf); Crenated RBC SLIGHT = 1-5 cells (100X) (None Seen); Hemoglobin 9.7 g/dL (14.0-18.0); Hypochromia MODERATE=16-30 cells (100X) (0-5/hpf); MDiff Complete? YES; Mean Corpuscular HGB CONC 28.3 g/dL (32.0-36.0); Mean Corpuscular Hemoglobin 23.8 pg (27.0-31.0); Mean Corpuscular Volume 83.9 fL (78.0-98.0); Mean Platelet Volume 8.2 fL (7.4-10.4); Platelet Count 239 thou/uL (130-400); RBC Distribution Width 17.5 % (11.5-14.5); Red Blood Cell (RBC) Count 4.09 mill/uL (4.70-6.10); Reflex for Review?? YES; Schistocytes SLIGHT = 2-5 cells (100X) (0-1/hpf); Target Cells SLIGHT = 2-5 cells (100X) (0-1/hpf)
[2021-01-11 22:51] LABS: CKMB 2.8 ng/mL (0-6.6)
[2021-01-11 23:05] LABS: SARS-CoV-2 NAA Rapid Test Not Detected (NotDetected)
[2021-01-11] MEDS ORDERED: Furosemide 40 MG/4 ML VIAL ONE (23:12)
[2021-01-11] MEDS ORDERED: Atropine Sulfate 1 mg/10 ml Syringe ONE (23:29)
== END 2021-01-11 23:22 | disposition short-term general hospital (02) ==
LOC: MADERS 21:38
DX: I11.0 Hypertensive heart disease with heart failure (principal); I50.9 Heart failure, unspecified; D64.9 Anemia, unspecified; R77.8 Other specified abnormalities of plasma proteins; E11.9 Type 2 diabetes mellitus without complications; J45.909 Unspecified asthma, uncomplicated; Z20.822 Contact with and (suspected) exposure to COVID-19; Z79.82 Long term (current) use of aspirin; Z79.01 Long term (current) use of anticoagulants; Z79.899 Other long term (current) drug therapy
CPT/HCPCS: 71045; 80053; 82553; 83735; 83880; 84484; 85025; 85060; 93005; 96374; 96375; J0461; J1940; U0002

== ENCOUNTER 2021-05-08 18:03 | Emergency (ER) | payer OTHER ==
[2021-05-08] MEDS ORDERED: Sodium Chloride 0.9% 500 ML ONE (18:30)
[2021-05-08] MEDS ORDERED: Albuterol Sulfate 2.5 mg/0.5 ml Neb ONE (18:30)
[2021-05-08 18:37] LABS: INR-International Normal Ratio 1.6; Prothrombin Time 18.9 sec (12.0-14.7)
[2021-05-08 18:38] LABS: PTT 41.3 sec (22.9-36.1)
[2021-05-08 18:48] LABS: ALT (SGPT) 13 U/L (8-55); AST (SGOT) 17 U/L (5-34); Albumin 4.2 g/dL (3.5-5.0); Alkaline Phosphatase 152 U/L (40-110); Anion Gap 16 mmol/L (10-20); BUN (Urea Nitrogen) 46 mg/dL (8.4-25.7); Bilirubin, Total 1.9 mg/dL (0.2-1.2); Calc. Creatinine Clearance 0 mL/min (70-130); Calcium 10.4 mg/dL (7.8-10.44); Carbon Dioxide 27 mmol/L (22-29); Chloride 105 mmol/L (98-107); Globulin 3.9 g/dL (2.4-3.5); Glucose 116 mg/dL (70-105); Potassium 4.5 mmol/L (3.5-5.1); Protein, Total 8.1 g/dL (6.0-8.3); Sodium 143 mmol/L (136-145)
[2021-05-08 18:49] LABS: #Basophils 0.1 thou/uL (0.0-0.2); #Eosinphils 0.1 thou/uL (0.0-0.7); #Lymphocytes 0.9 thou/uL (1.20-3.40); #Monocytes 0.5 thou/uL (0.11-0.59); #Neutrophils 3.3 thou/uL (1.40-6.50); %Basophils 1.2 % (0.0-1.0); %Eosinophils 2.6 % (0.0-10.0); %Lymphocytes 18.9 % (21.0-51.0); %Monocytes 10.3 % (0.0-10.0); %Neutrophils 67.1 % (42.0-75.0); Anisocytosis SLIGHT = 6-15 cells (100X) (0-5/hpf); Hemoglobin 10.8 g/dL (14.0-18.0); Hypochromia SLIGHT = 6-15 cells (100X) (0-5/hpf); MDiff Complete? YES; Mean Corpuscular HGB CONC 28.6 g/dL (32.0-36.0); Mean Corpuscular Hemoglobin 22.2 pg (27.0-31.0); Mean Corpuscular Volume 77.4 fL (78.0-98.0); Mean Platelet Volume 10.1 fL (7.4-10.4); Microcytosis SLIGHT = 6-15 cells (100X) (0-5/hpf); Ovalocytes SLIGHT = 2-5 cells (100X) (0-1/hpf); Platelet Count 172 thou/uL (130-400); Poikilocytosis SLIGHT = 6-15 cells (100X) (0-5/hpf); RBC Distribution Width 22.5 % (11.5-14.5); Red Blood Cell (RBC) Count 4.88 mill/uL (4.70-6.10); Rouleaux Formation SLIGHT = 1-5 cells (100X) (None Seen); White Blood Cell (WBC) Count 4.9 thou/uL (4.8-10.8)
[2021-05-08 19:07] LABS: CKMB 4.2 ng/mL (0-6.6)
[2021-05-08] MEDS ORDERED: Furosemide 40 MG/4 ML VIAL ONE (19:16)
[2021-05-08] MEDS ORDERED: Carvedilol 6.25 MG TAB ONE (20:48)
== END 2021-05-08 21:22 | disposition short-term general hospital (02) ==
LOC: MADERS 18:03
DX: I11.0 Hypertensive heart disease with heart failure (principal); I50.9 Heart failure, unspecified; I48.91 Unspecified atrial fibrillation; N28.9 Disorder of kidney and ureter, unspecified; E11.9 Type 2 diabetes mellitus without complications; I25.2 Old myocardial infarction; J45.909 Unspecified asthma, uncomplicated
CPT/HCPCS: 36415; 71045; 80053; 82553; 83605; 83880; 84484; 85025; 85610; 85730; 87040; 93005; 94760; 96374; J1940; J7030; J7611; J7620